=== PATIENT | male | born 1975 | race Caucasian/White ===

== ENCOUNTER 2019-02-12 09:13 | Emergency (ER) | payer OTHER ==
[~2019-02-12] VITALS: Wt 136.1 kg
[~2019-02-12 09:13] MED LIST: AMOXICILLIN500 MG PO; AUGMENTIN 875 M1 TAB PO; CIPRODEX 0.3%-7.5 ML OT; CLARITIN10 MG PO; DARVOCET N 1001 TAB PO; DAYPRO600 M1 PO; MOTRIN800 MG PO; ROBAXIN750 MG PO; TRAMADOL HCL50 MG PO
[2019-02-12 09:15] VITALS: BP 166/98
[2019-02-12 10:20] LABS: BILIRUBIN NEGATIVE (NEGATIVE); BLOOD NEGATIVE (NEGATIVE); CLARITY SL CLOUDY (CLEAR); COLOR YELLOW (YELLOW); GLUCOSE NEGATIVE (NEGATIVE); KETONE NEGATIVE (NEGATIVE); LEUKO ESTERASE NEGATIVE (NEGATIVE); NITRITE NEGATIVE (NEGATIVE); PH 5.5 (5.0-9.0); SPECIFIC GRAVITY >= 1.030 (1.005-1.030)
[2019-02-12 10:37] LABS: BACTERIA 1+; MUCOUS 3+; RBC 0-2 rbc/hpf (0-2)
[2019-02-12 10:42] LABS: URINE AMPHETAMINES < 1000 (1000ng/ml); URINE BARBITURATES < 200 (200ng/ml); URINE BENZODIAZEPINES > 200 (200ng/ml); URINE CANNABINOIDS (THC) < 50 (50ng/ml); URINE COCAINE < 300 (300ng/ml); URINE METHADONE < 300 (300ng/ml); URINE OPIATES < 300 (300ng/ml)
[2019-02-12 10:43] LABS: URINE PHENCYCLIDINE < 25 (25ng/ml)
[2019-02-12] MEDS ORDERED: NAPROSYN500 MG PO (11:17)
[2019-02-12] MEDS ORDERED: ROBAXIN500 M1 PO (11:17)
[2019-02-12] MEDS ORDERED: MEDROL DOSEPAK4 MG PO (11:17)
== END 2019-02-12 11:30 | disposition home or self-care (01) ==
LOC: ED 09:13
PROVIDERS: Nurse Practitioner Family
DX: S39.012A Strain of muscle, fascia and tendon of lower back, initial encounter (principal); X50.0XXA Overexertion from strenuous movement or load, initial encounter; Y93.89 Activity, other specified; Y92.828 Other wilderness area as the place of occurrence of the external cause; Y99.8 Other external cause status

== ENCOUNTER 2020-12-28 14:28 | Emergency (ER) | payer OTHER ==
[~2020-12-28] VITALS: Ht 185.4 cm; Wt 136.1 kg
[~2020-12-28 14:28] MED LIST changes: +MEDROL DOSEPAK4 MG PO; +NAPROSYN500 MG PO; +ROBAXIN500 M1 PO
[2020-12-28 14:55] VITALS: BP 140/92
[2020-12-28 15:18] LABS: BASO % 0.4 % (0.0-1.0); EOS # 0.1 10*3/uL (0.0-0.4); EOS % 1.5 % (1.0-4.0); HEMATOCRIT 43.8 % (42.0-52.0); LYMPH # 2.7 10*3/uL (1.3-4.4); LYMPH % 35.7 % (27.0-41.0); MEAN CELL VOLUME 89.4 fl (80.0-94.0); MEAN CORPUSCULAR HGB CONC 33.6 g/dl (33.0-37.0); MEAN PLATELET VOLUME 10.3 fl (9.6-12.3); MONO # 0.5 10*3/uL (0.1-1.0); MONO % 6.2 % (3.0-9.0); NEUT # 4.2 10*3/uL (2.3-7.9); NEUT % 55.9 % (47.0-73.0); PLATELET COUNT AUTOMATED 176 10*3/uL (130-400); RED CELL DISTRI WIDTH 12.1 % (0-14.5); WHITE BLOOD COUNT 7.5 10*3/uL (4.8-10.8)
[2020-12-28 15:38] LABS: ALBUMIN 3.5 gm/dl (3.1-4.5); ALKALINE PHOSPHATASE 100 U/L (45-117); BUN 13 mg/dl (7-24); CHLORIDE 103 mmol/L (98-107); CREATININE 1.19 mg/dL (0.70-1.30); POTASSIUM 4.5 mmol/L (3.5-5.1); SGOT/AST 23 IU/L (3-35); SGPT/ALT 43 U/L (12-78); SODIUM 135 mmol/L (136-145); TOTAL PROTEIN 7.5 gm/dL (6.4-8.2)
[2020-12-28] MEDS ORDERED: CEPHALEXIN500 M1 PO (15:50)
[2020-12-28] MEDS ORDERED: SEPTDS PO (15:50)
== END 2020-12-28 16:05 | disposition home or self-care (01) ==
LOC: ED 14:28
PROVIDERS: Physician Assistant
DX: L03.115 Cellulitis of right lower limb (principal)

== ENCOUNTER → 2021-01-11 | Outpatient (CLI) | payer OTHER ==
[~2021-01-11] MED LIST changes: +CEPHALEXIN500 M1 PO; +SEPTDS PO
== END ==
LOC: WOUNDCARE 00:27
PROVIDERS: ATTEND Nurse Practitioner
DX: S81.801A Unspecified open wound, right lower leg, initial encounter (principal); R21 Rash and other nonspecific skin eruption; L03.115 Cellulitis of right lower limb; Z72.0 Tobacco use; W22.8XXA Striking against or struck by other objects, initial encounter; Y93.89 Activity, other specified; Y92.89 Other specified places as the place of occurrence of the external cause; Y99.8 Other external cause status

== ENCOUNTER → 2021-01-17 | Outpatient (CLI) | payer OTHER | LOC: WOUNDCARE 01:21 | PROVIDERS: ATTEND Nurse Practitioner | DX: L97.812 Non-pressure chronic ulcer of other part of right lower leg with fat layer exposed (principal); S81.801D Unspecified open wound, right lower leg, subsequent encounter; R21 Rash and other nonspecific skin eruption; L03.115 Cellulitis of right lower limb; Z72.0 Tobacco use; W22.8XXD Striking against or struck by other objects, subsequent encounter ==

== ENCOUNTER → 2021-01-25 | Outpatient (CLI) | payer OTHER | LOC: WOUNDCARE 00:56 | PROVIDERS: ATTEND Nurse Practitioner | DX: L97.812 Non-pressure chronic ulcer of other part of right lower leg with fat layer exposed (principal); S81.801D Unspecified open wound, right lower leg, subsequent encounter; R21 Rash and other nonspecific skin eruption; L03.115 Cellulitis of right lower limb; Z72.0 Tobacco use; W22.8XXD Striking against or struck by other objects, subsequent encounter ==

== ENCOUNTER → 2021-02-01 | Outpatient (CLI) | payer OTHER | LOC: WOUNDCARE 02:05 | PROVIDERS: ATTEND Nurse Practitioner | DX: L97.812 Non-pressure chronic ulcer of other part of right lower leg with fat layer exposed (principal); S81.801D Unspecified open wound, right lower leg, subsequent encounter; R21 Rash and other nonspecific skin eruption; L03.115 Cellulitis of right lower limb; Z72.0 Tobacco use; W22.8XXD Striking against or struck by other objects, subsequent encounter ==

== ENCOUNTER → 2021-02-08 | Outpatient (CLI) | payer OTHER | LOC: WOUNDCARE 00:38 | PROVIDERS: ATTEND Nurse Practitioner | DX: L97.812 Non-pressure chronic ulcer of other part of right lower leg with fat layer exposed (principal); S81.801D Unspecified open wound, right lower leg, subsequent encounter; R21 Rash and other nonspecific skin eruption; L03.115 Cellulitis of right lower limb; Z72.0 Tobacco use; W22.8XXD Striking against or struck by other objects, subsequent encounter ==

== ENCOUNTER → 2021-02-15 | Outpatient (CLI) | payer OTHER | LOC: WOUNDCARE 05:31 | PROVIDERS: ATTEND Nurse Practitioner | DX: L97.812 Non-pressure chronic ulcer of other part of right lower leg with fat layer exposed (principal); S81.801D Unspecified open wound, right lower leg, subsequent encounter; R21 Rash and other nonspecific skin eruption; L03.115 Cellulitis of right lower limb; F17.200 Nicotine dependence, unspecified, uncomplicated; W22.8XXD Striking against or struck by other objects, subsequent encounter ==

== ENCOUNTER → 2021-02-22 | Outpatient (CLI) | payer OTHER | LOC: WOUNDCARE 02-21 06:59 | PROVIDERS: ATTEND Nurse Practitioner | DX: L97.812 Non-pressure chronic ulcer of other part of right lower leg with fat layer exposed (principal); S81.801D Unspecified open wound, right lower leg, subsequent encounter; R21 Rash and other nonspecific skin eruption; L03.115 Cellulitis of right lower limb; F17.200 Nicotine dependence, unspecified, uncomplicated; W22.8XXD Striking against or struck by other objects, subsequent encounter ==

== ENCOUNTER → 2021-09-10 | Outpatient (CLI) | payer OTHER | END | disposition home or self-care (01) | LOC: RAD 17:19 | PROVIDERS: ATTEND Student in an Organized Health Care Education/Training Program | DX: J43.8 Other emphysema (principal); R05.9 Cough, unspecified; M47.814 Spondylosis without myelopathy or radiculopathy, thoracic region ==

== ENCOUNTER → 2022-04-22 | Day surgery (SDC) | payer BC ==
[~2022-04-22] VITALS: Ht 182.8 cm; Wt 136.1 kg
[~2022-04-22] MED LIST changes: +FISH OIL 1,0001 EAC4 PO; +METFORMIN HYDR500 MG PO; +VITAMIN D31250 MCG PO
[2022-04-22 07:15] VITALS: BP 140/83
[2022-04-22 08:16] VITALS: BP 142/91
[2022-04-22 08:32] VITALS: BP 142/90
[2022-04-22 08:53] VITALS: BP 130/90
== END | disposition home or self-care (01) ==
LOC: SDC 04-18 08:45
PROVIDERS: ATTEND Surgery
DX: Z12.11 Encounter for screening for malignant neoplasm of colon (principal); E11.9 Type 2 diabetes mellitus without complications; Z79.899 Other long term (current) drug therapy

== ENCOUNTER 2022-07-20 15:00 | Emergency (ER) | payer SELFPAY | END 2022-07-20 17:13 | disposition left against medical advice (07) | LOC: ED 15:00 | DX: Z53.21 Procedure and treatment not carried out due to patient leaving prior to being seen by health care provider (principal) ==

== ENCOUNTER 2024-08-24 09:46 | Emergency (ER) | payer BC ==
[~2024-08-24] VITALS: Ht 182.8 cm; Wt 127.0 kg
[2024-08-24 10:06] VITALS: BP 186/98
[2024-08-24] MEDS ORDERED: Ketorolac Tromethamine 30 MG/ML VIAL IM ONE (11:05)
[2024-08-24] MEDS ORDERED: NAPROSYN500 MG PO (11:17)
== END 2024-08-24 11:24 | disposition home or self-care (01) ==
LOC: ED 09:46
DX: M25.551 Pain in right hip (principal); E11.9 Type 2 diabetes mellitus without complications; Z98.890 Other specified postprocedural states